=== PATIENT | female | born 1960 | race Caucasian/White ===

== ENCOUNTER → 2016-04-02 | Outpatient (CLI) | payer OTHER ==
--- NOTE | 2016-04-02 21:32 | DIAGNOSTIC IMAGING REPORT ---
PROCEDURE: XR LUMBAR SPINE 5 VIEWS INDICATION: LUMBAR PAIN, initial encounter TECHNIQUE: Five views. COMPARISON: Lumbar spine x-ray 12/16/2013 FINDINGS: Osteopenia. Normal alignment without fracture. No pars defects. Mild L4-5 disc space narrowing, new. Cholecystectomy. Severe obstipation. IMPRESSION: 1. Mild to moderate L4-5 disc space narrowing 2. Osteopenia 3. Obstipation
== END ==
LOC: XR SRH 20:46
DX: M48.06 Spinal stenosis, lumbar region (principal); M85.88 Other specified disorders of bone density and structure, other site

== ENCOUNTER 2016-08-04 18:31 | Outpatient (CLI) | payer OTHER ==
--- NOTE | 2016-08-04 18:53 | DIAGNOSTIC IMAGING REPORT ---
PROCEDURE: XR CHEST 2 VIEW INDICATION: CHRONIC OBSTRUCTIVE LUNG DISEASE TECHNIQUE: PA and lateral view. COMPARISON: Chest x-ray 08/26/2013. FINDINGS: Lungs are clear. Left pericardial fat pad. Cardiovascular structures are normal. Cholecystectomy. Bony thorax is unremarkable. IMPRESSION: 1. No acute changes.
== END 2016-08-04 23:00 ==
LOC: XR SRH 18:31
DX: J44.9 Chronic obstructive pulmonary disease, unspecified (principal)